=== PATIENT | female | born 1995 | race Caucasian/White ===

== ENCOUNTER → 2017-07-30 | Outpatient (CLI) | payer BC, OTHER | LOC: FIMAGING 15:14 | PROVIDERS: ATTEND Orthopaedic Surgery | DX: S73.191A Other sprain of right hip, initial encounter (principal); M21.861 Other specified acquired deformities of right lower leg ==

== ENCOUNTER 2017-12-27 05:45 | Day surgery (SDC) | payer OTHER ==
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
[2017-12-27] MEDS ORDERED: ceFAZolin 2 GM/SWFI 2 GM/20 ML SYR IVP ONE (06:13)
[2017-12-27] MEDS ORDERED: ACETAMINOPHEN 500 MG TAB PO ONE (06:13)
[2017-12-27] MEDS ORDERED: LR 1,000 ML IV ONE (06:13)
[2017-12-27] MEDS ORDERED: PREGABALIN 150 MG CAP PO ONE (06:13)
[2017-12-27] MEDS ORDERED: LIDOCAINE 1% 2 ML INJ ID PRN (06:13)
[2017-12-27 06:41] VITALS: PULSE 91
--- NOTE | 2017-12-27 06:47 | PDANEPAE ---
ANE History of Present Illness 22 year old female presents for right hip arthroscopy. ANE Past Medical History - Cardiovascular History Hx Hypertension: No Hx Arrhythmias: No Hx Chest Pain: No Hx Coronary Artery / Peripheral Vascular Disease: No Hx CHF / Valvular Disease: No Hx Palpitations: No - Pulmonary History Hx COPD: No Hx Asthma/Reactive Airway Disease: No Hx Recent Upper Respiratory Infection: No Hx Oxygen in Use at Home: No Hx Sleep Apnea: No Sleep Apnea Screening Result - Last Documented: Negative - Neurologic History Hx Cerebrovascular Accident: No Hx Seizures: No Hx Dementia: No - Endocrine History Hx Diabetes: No Hypothyroid: No Hyperthyroid: No Obesity: no - Renal History Hx Renal Disorders: No - Liver History Hx Hepatic Disorders: No - Neurological & Psychiatric Hx Hx Neurological and Psychiatric Disorders: No - Cancer History Hx Cancer: No - Congenital Disorder History Hx Congenital Disorders: No Congenital History Comment: FLORENTINO HIPS - GI History GERD: no Hx Gastrointestinal Disorders: No - Other Health History Other Health History: generalised acne. iron anemia - Chronic Pain History Chronic Pain: No - Surgical History Prior Surgeries: labrum repair 2016. tonsilectomy 2014 ANE Review of Systems Review of systems is: negative Review of Systems: - Exercise capacity Exercise capacity: >=4 METS METS (RN): 6 METS ANE Patient History - Allergies Allergies/Adverse Reactions: No Known Allergies Allergy (Verified 12/21/17 15:07) - Home Medications Home medications: home medication list seen and reviewed Home Medications: Ibuprofen 03/17/14 [Last Taken 12/20/17] IRON 11/23/17 [Last Taken 12/26/17] Spironolactone 11/23/17 [Last Taken 12/26/17] - NPO status NPO Status: no food or drink >8 hours NPO Since - Liquids (Date): 12/26/17 NPO Since - Liquids (Time): 23:55 NPO Since - Solids (Date): 12/26/17 NPO Since - Solids (Time): 22:30 - Anes Hx Anes Hx: no prior problems - Smoking Hx Smoking Status: Never smoked Marijuana use: No - Alcohol Use Alcohol Use: Rarely - Family Anes Hx Family Anes Hx: neg - N/A Family Hx Anesthesia Complications: none ANE Labs/Vital Signs - Vital Signs Vital Signs: reviewed preoperatively; see RN documention for details Blood Pressure: 122/70 Heart Rate: 91 Respiratory Rate: 18 O2 Sat (%): 96 Height: 160.02 cm Weight: 61.235 kg ANE Physical Exam - Airway Neck exam: FROM Mallampati Score: Class 2 Mouth exam: normal dental/mouth exam - Pulmonary Pulmonary: no respiratory distress - Cardiovascular Cardiovascular: regular rate and rhythym - ASA Status ASA Status: I ANE Anesthesia Plan Anesthesia Plan: general endotracheal anesthesia Total IV Anesthesia: No
[2017-12-27] MEDS ORDERED: MIDAZOLAM 2 MG/2 ML VIAL IVP ONE (06:48)
[2017-12-27] MEDS ORDERED: PROPOFOL 200 MG/20 ML VIAL ONE (07:09)
[2017-12-27] MEDS ORDERED: fentaNYL 100 MCG/2 ML INJ ONE ×4 (07:09→11:18)
[2017-12-27] MEDS ORDERED: EPINEPHrine 30 MG/30 ML MDV (0.1 MG/0.1 ML) ONE (07:15)
[2017-12-27] MEDS ORDERED: SCOPOLAMINE HYDROBROMIDE 1 MG/3 DAYS PATCH TD SCH (07:15)
[2017-12-27] MEDS ORDERED: BUPIVACAINE 0.25% 30 ML SDV ONE (07:15)
[2017-12-27] MEDS ORDERED: PHENYLEPHRINE HCL 100 MCG/ML SYR ONE (07:35)
[2017-12-27] MEDS ORDERED: ROCURONIUM 50 MG/5 ML VIAL ONE (07:48)
[2017-12-27] MEDS ORDERED: LIDOCAINE 2% 5 ML SDV ONE (07:48)
[2017-12-27] MEDS ORDERED: ONDANSETRON 4 MG/2 ML VIAL ONE (07:48)
[2017-12-27] MEDS ORDERED: DEXAMETHASONE 4 MG/ML VIAL ONE (07:48)
[2017-12-27] MEDS ORDERED: PROPOFOL/EMULSION 500 MG/50 ML BOTTLE IV ONE (08:05)
[2017-12-27] MEDS ORDERED: PHENYLEPHRINE HCL 100 MCG/ML SYR IVP PRN (09:21)
[2017-12-27] MEDS ORDERED: DIAZEPAM 5 MG/ML 1 ML SYR IVP PRN (09:21)
[2017-12-27] MEDS ORDERED: PROMETHAZINE HCL 25 MG/ML INJ IVP PRN (09:21)
[2017-12-27] MEDS ORDERED: OXYCODONE/APAP 5/325 TAB PO PRN (09:21)
[2017-12-27] MEDS ORDERED: LR 500 ML IV PRN (09:21)
[2017-12-27] MEDS ORDERED: NALOXONE HCL 0.4 MG/ML INJ IVP PRN (09:21)
[2017-12-27] MEDS ORDERED: HYDROmorphONE/DILAUDID 1 MG/ML INJ IVP PRN (09:21)
[2017-12-27] MEDS ORDERED: ONDANSETRON 4 MG/2 ML VIAL IVP PRN (09:21)
[2017-12-27] MEDS ORDERED: SUGAMMADEX SODIUM 200 MG/2 ML VIAL IVP ONE (09:23)
[2017-12-27] MEDS ORDERED: HYDROmorphONE/DILAUDID 2 MG/ML INJ IVP PRN (10:00)
[2017-12-27] MEDS: fentaNYL 100 MCG/2 ML INJ IVP PRN ×2 (11:22→11:33)
[2017-12-27 11:44] VITALS: TEMP 97.9
[2017-12-27] MEDS ORDERED: OXYCODONE/APAP 5/325 TAB ONE ×2 (11:48→12:47)
[2017-12-27] MEDS ORDERED: HYDROmorphONE/DILAUDID 2 MG/ML INJ ONE (11:48)
[2017-12-27 12:07] VITALS: RESP 16
[2017-12-27] MEDS ORDERED: DIAZEPAM 5 MG TAB ONE (13:00)
[2017-12-27] MEDS ORDERED: DIAZEPAM 5 MG TAB PO ONE (13:02)
[2017-12-27] MEDS ORDERED: DIAZEPAM 2 MG TAB PO ONE (13:08)
[2017-12-27 14:42] VITALS: BP 105/63; O2SAT 94
--- NOTE | 2017-12-27 20:36 | POSTANESTH ---
Post Anesthetic Evaluation Cardiovascular Status: Normal, Stable, Similar to Pre-Op Cond Respiratory Status: Normal, Stable, Similar to Pre-op Cond. Level of Consciousness/Mental Status: Can Participate in Eval, Alert and Oriented Pain Control: Adequate, Prn Tx Ordered Nausea/Vomiting Control: Adequate, Prn Tx Ordered Complications Possibly Related to Anesthesia: None Noted
[2017-12-30] MEDS ORDERED: PATCH REMOVAL 1 EA PATCH TD SCH (07:04)
== END 2017-12-27 14:20 | disposition home or self-care (01) ==
LOC: FSGY 05:45
PROVIDERS: ATTEND Orthopaedic Surgery Sports Medicine
PROC: 0SQ94ZZ Repair Right Hip Joint, Percutaneous Endoscopic Approach (ICD-10-PCS; principal; 2017-12-27 07:15)
DX: Q65.89 Other specified congenital deformities of hip (principal); M25.851 Other specified joint disorders, right hip; M25.852 Other specified joint disorders, left hip
CPT/HCPCS: C1713; J0171; J0690; J1100; J1170; J2250; J2370; J2405; J2704; J3010

== ENCOUNTER 2018-01-03 05:54 | Inpatient (IN) | payer OTHER ==
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
[2018-01-03] MEDS ORDERED: TRANEXAMIC ACID 1,000 MG in NS (SYRINGE) 50 ML IV ONE (06:00)
[2018-01-03] MEDS ORDERED: ACETAMINOPHEN 500 MG TAB PO ONE (06:13)
[2018-01-03] MEDS ORDERED: PREGABALIN 150 MG CAP PO ONE (06:13)
[2018-01-03] MEDS ORDERED: LR 1,000 ML IV ONE (06:13)
[2018-01-03] MEDS ORDERED: LIDOCAINE 1% 2 ML INJ ID PRN (06:13)
[2018-01-03] MEDS ORDERED: ceFAZolin 2 GM/SWFI 2 GM/20 ML SYR IVP ONE ×2 (06:13→06:30)
[2018-01-03] MEDS ORDERED: SCOPOLAMINE HYDROBROMIDE 1 MG/3 DAYS PATCH TD ONE (06:13)
[2018-01-03] MEDS ORDERED: CITRATE DEXTROSE SOLN 500 ML BAG ONE ×2 (07:06→10:35)
[2018-01-03] MEDS ORDERED: MIDAZOLAM 2 MG/2 ML VIAL IVP ONE (07:11)
--- NOTE | 2018-01-03 07:11 | PDANEPAE ---
ANE History of Present Illness 22 yo female with R hip dysplasia. ANE Past Medical History - Cardiovascular History Hx Hypertension: No Hx Arrhythmias: No Hx Chest Pain: No Hx Coronary Artery / Peripheral Vascular Disease: No Hx CHF / Valvular Disease: No Hx Palpitations: No Cardiovascular History Comment: spironolactone used for acne treatment - Pulmonary History Hx COPD: No Hx Asthma/Reactive Airway Disease: No Hx Recent Upper Respiratory Infection: No Hx Oxygen in Use at Home: No Hx Sleep Apnea: No Sleep Apnea Screening Result - Last Documented: Negative - Neurologic History Hx Cerebrovascular Accident: No Hx Seizures: No Hx Dementia: No - Endocrine History Hx Diabetes: No Hypothyroid: No Obesity: no - Renal History Hx Renal Disorders: No - Liver History Hx Hepatic Disorders: No - Neurological & Psychiatric Hx Hx Neurological and Psychiatric Disorders: No - Cancer History Hx Cancer: No - Congenital Disorder History Hx Congenital Disorders: No Congenital History Comment: FLORENTINO HIPS - GI History Hx Gastrointestinal Disorders: No - Other Health History Other Health History: generalised acne. iron anemia - Chronic Pain History Chronic Pain: No - Surgical History Prior Surgeries: labrum repair 2016. tonsilectomy 2014 ANE Review of Systems Review of Systems: - Exercise capacity METS (RN): 4 METS - Systems Constitutional: Reports: no symptoms Cardiac: Reports: no symptoms Respiratory: Reports: no symptoms Muscolosketal: Reports: other (recovering from R hip surgery last week) ANE Patient History - Allergies Allergies/Adverse Reactions: No Known Allergies Allergy (Verified 12/21/17 15:07) - Home Medications Home Medications: Ibuprofen 03/17/14 [Last Taken 12/20/17] IRON 11/23/17 [Last Taken 1 Week Ago ~12/27/17] Spironolactone 11/23/17 [Last Taken 12/31/17] Naproxen 01/03/18 [Last Taken 12/31/17] Percocet 7.5-325 mg Tablet 01/03/18 [Last Taken 01/03/18 00:00] Valium 10 MG (*) 01/03/18 [Last Taken 01/03/18 00:00] Zofran 01/03/18 [Last Taken 01/03/18 00:00] - NPO status NPO Since - Liquids (Date): 01/03/18 NPO Since - Liquids (Time): 01:00 NPO Since - Solids (Date): 01/02/18 NPO Since - Solids (Time): 23:50 - Anes Hx Anes Hx: post operative nausea and vomiting - Smoking Hx Smoking Status: Never smoked - Family Anes Hx Family Anes Hx: neg - N/A Family Hx Anesthesia Complications: none ANE Labs/Vital Signs - Labs Result Diagrams: 01/03/18 06:44 - Vital Signs Vital Signs: reviewed preoperatively; see RN documention for details Blood Pressure: 116/76 Heart Rate: 94 O2 Sat (%): 95 Height: 160.02 cm Weight: 63.503 kg ANE Physical Exam - Airway Neck exam: FROM Mallampati Score: Class 1 Mouth exam: normal dental/mouth exam - Pulmonary Pulmonary: clear to auscultation - Cardiovascular Cardiovascular: regular rate and rhythym - ASA Status ASA Status: II ANE Anesthesia Plan Anesthesia Plan: general endotracheal anesthesia, spinal Lines/Monitors: additional IV
[2018-01-03] MEDS ORDERED: PROPOFOL/EMULSION 500 MG/50 ML BOTTLE IV ONE ×2 (07:20→09:56)
[2018-01-03] MEDS ORDERED: ROCURONIUM 100 MG/10 ML VIAL ONE (07:20)
[2018-01-03] MEDS ORDERED: morphINE PF 5 MG/10 ML INJ ONE (07:20)
[2018-01-03] MEDS ORDERED: LIDOCAINE 2% 5 ML SDV ONE (07:20)
[2018-01-03] MEDS ORDERED: KETAMINE 200 MG/20 ML VIAL ONE (07:20)
[2018-01-03] MEDS ORDERED: PHENYLEPHRINE 10 MG/ML SDV ONE (09:21)
[2018-01-03] MEDS ORDERED: DIAZEPAM 5 MG/ML 1 ML SYR IVP PRN (11:47)
[2018-01-03] MEDS ORDERED: PROMETHAZINE HCL 25 MG/ML INJ IVP PRN (11:47)
[2018-01-03] MEDS ORDERED: ALBUTEROL 3 ML DEYVIAL IH PRN (11:47)
[2018-01-03] MEDS ORDERED: LR 500 ML IV PRN (11:47)
[2018-01-03] MEDS ORDERED: NALOXONE HCL 0.4 MG/ML INJ IVP PRN ×2 (11:47→12:27)
[2018-01-03] MEDS ORDERED: OXYCODONE/APAP 5/325 TAB PO PRN (11:47)
[2018-01-03] MEDS ORDERED: ONDANSETRON 4 MG/2 ML VIAL ONE (11:51)
[2018-01-03] MEDS ORDERED: BISACODYL 10 MG SUPP PR PRN (12:26)
[2018-01-03] MEDS ORDERED: ACETAMINOPHEN 325 MG TAB PO PRN (12:26)
[2018-01-03] MEDS ORDERED: POLYETHYLENE GLYCOL 3350 17 GM PKT PO PRN (12:26)
[2018-01-03] MEDS ORDERED: LACTULOSE 20 GM/30 ML UDCUP PO PRN (12:26)
[2018-01-03] MEDS ORDERED: diphenhydrAMINE 25 MG CAP PO PRN (12:27)
--- NOTE | 2018-01-03 12:29 | POSTANESTH ---
Post Anesthetic Evaluation Cardiovascular Status: Normal, Stable Respiratory Status: Normal, Stable Level of Consciousness/Mental Status: Can Participate in Eval, Mildly Sleepy, Arousable Pain Control: Inadeq, Add Tx Required (Pain 5/10 in R hip) Nausea/Vomiting Control: Adequate, Prn Tx Ordered Complications Possibly Related to Anesthesia: None Noted
[2018-01-03] MEDS ORDERED: fentaNYL 100 MCG/2 ML INJ ONE (12:30)
[2018-01-03] MEDS: fentaNYL 100 MCG/2 ML INJ IVP PRN ×2 (12:32→12:57)
[2018-01-03] MEDS: ONDANSETRON 4 MG/2 ML VIAL IVP PRN ×2 (13:50→23:03)
[2018-01-03] MEDS: NS 1,000 ML IV SCH (14:06)
[2018-01-03] MEDS: HYDROmorphONE/DILAUDID 6 MG/30 ML PCA IV PRN (14:28)
[2018-01-03] MEDS: DIAZEPAM 2 MG TAB PO PRN (15:11)
[2018-01-03] MEDS: SENNOSIDES/DOCUSATE SODIUM TAB PO SCH (22:03)
--- NOTE | 2018-01-03 23:38 | SUROPNOTE ---
[facility] Operative Report - Surgery Surgery was performed at [facility] on 01/03/18~ Diagnosis: Right 1. Hip Acetabular Dysplasia ~ Operation: Right~Pili Acetabular Osteotomy (JENNY) Surgeon: Vivek Acosta MD Smt Operator:~~Shreya Price MD Anesthetic: General + spinal Procedure: General anesthetic. Antibiotics given. Cell saver in use. Fluoroscopy. Phase 1: Position lateral, diagonal skin incision between ischial tuberosity and greater trochanter as for posterior hip approach. Blunt split of glut max fibers. Identification of fat pad overlying sciatic nerve. Exposure of sciatic nerve under fat pad, gently retracting it away-medially to ischial tuberosity. Exposure of subcotoloid fossa proximal to short rotators. Using osteotomes and under fluoroscopy, osteotomy of subcotoloid fossa to sciatic notch proximal to ischial spine. Closure of lateral cut. Patient is turned supine. Phase 2: Skin incision just distal to ASIS. Using diathermy the iliac spine was exposed and inguinal ligament + Sartorious were retracted medially, taking the LFCN with them, protecting it. Inner ilium was dissected from iliacus muscle bluntly , with a cob and swab. Dissection continued towards lateral superior ramus pubis. Using fluoroscopy an osteotomy of lateral superior ramus, just medial to tear drop, was performed with curved fish mouth osteotome. Phase 3: Osteotomy lines of the ilium were marked with diathermy as pre planned according to XR/CT and expected correction of acatabulum. 2 Shanz screws were drilled into central acetabular fragment, corresponding with planned correction angles, in order to mobilize central acetabular fragment after osteotomy is complete. ~Iliac osteotomy was performed with reciprocating saw and the main acetabular fragment was moved to realign weight bearing position. After confirmation of correction using fluoroscopy in AP and false profile planes, the fragment was fixed with 3 - 5.5mm ~full threaded~screws~Inguinal ligament and Sartorious were attached back to ASIS through drill holes. Incision was closed according to soft tissue layers. Skin was closed with subdermal Monocryl. Final fluoro shots were obtained to confirm position/correction. After surgery [place]~moved both lower limbs and had no NV motor compromise. Specimen - none Bleeding - 300ml Complication - none Evaluation under anesthesia: IR at 90 degrees hip flexion prior to JENNY was 40~degrees and after JENNY was 20~ degrees. Bleedin~cc into cell-saver, 135~of blood products were returned to patient. Post op instructions: 1. Non~weight bearing crutches for 2~weeks 2. Epidural analgesia for 24-48 hours 3. Continuous SCD 4. Aspirin 81 mg X1 day once Epidural is discontinued 5. Avoid hip flexion past 90 and hip External rotation. 6. PT according to my recommendations at follow up visit Kind regards, Dr. Vivek Acosta .
[2018-01-04] MEDS: ONDANSETRON DISINTEGRATING 4 MG TAB PO PRN ×2 (02:50→10:09)
[2018-01-04] MEDS: DIAZEPAM 2 MG TAB PO PRN ×2 (02:50→10:09)
[2018-01-04] MEDS: oxyCODONE IR 5 MG TAB PO PRN ×2 (04:11→11:43)
[2018-01-04] MEDS: oxyCODONE IR 5 MG TAB PO SCH ×5 (05:59→21:27)
[2018-01-04] MEDS ORDERED: PROMETHAZINE HCL 25 MG/ML INJ IVP PRN (07:28)
[2018-01-04] MEDS ORDERED: NAPROXEN SODIUM 220 MG TAB PO PRN (07:45)
[2018-01-04] MEDS: SPIRONOLACTONE 50 MG TAB PO SCH (07:52)
[2018-01-04] MEDS: SENNOSIDES/DOCUSATE SODIUM TAB PO SCH ×2 (08:28→19:59)
[2018-01-04] MEDS: NS 1,000 ML IV SCH ×2 (08:28→09:57)
--- NOTE | 2018-01-04 13:32 | SOAPPROG ---
SOAP Progress Note Assessment/Plan: Assessment: 22 yo female s/p R hip JENNY on POD #1. Pt received IT narcotics on DOS for POPC. Pt reporting poorly controlled pain yesterday and today. Has noticed an increase in pain today as spinal narcotics wore off. Pt had pruritus and nausea yesterday. Better today. Pt denies back pain/HARMON/leg weakness. Plan: 01/04/18 13:29 1. Add scheduled Lyrica and Celebrex for multimodal analgesia. 2. Reviewed s/s of PDPH and neurologic injury after SAB. Pt understands what to do in the event either problems arise. Objective: Vital Signs Temp Pulse Resp BP Pulse Ox 36.9 C 113 H 16 106/57 L 98 01/04/18 08:07 01/04/18 11:22 01/04/18 08:07 01/04/18 11:22 01/04/18 11:22 Laboratory Results 01/04/18 04:55 01/04/18 04:55 01/03/18 01/04/18 01/05/18 05:59 05:59 05:59 Intake Total 3610 500 Output Total 3050 Balance 560 500 Physical Exam - Physical Exam General Appearance: moderate distress Back: Other (SAB puncture site: no point tenderness, no erythema/edema/exudate.) ICD10 Worksheet Patient Problems: Problems Problem Status Onset Hip dysplasia Acute - ICD10 Problem Qualifiers (1) Hip dysplasia
[2018-01-04] MEDS: PREGABALIN 150 MG CAP PO SCH ×2 (14:15→19:59)
--- NOTE | 2018-01-04 15:51 | ASMTCMCOM ---
CM Note CM Note Notes: Pt s/p R hip JENNY, lives in [place]. OT/PT recs pending. CM to follow. Date Signed: 01/04/2018 03:51 PM Electronically Signed By:NORA Leung
[2018-01-04] MEDS: HYDROmorphONE/DILAUDID 6 MG/30 ML PCA IV PRN (18:27)
--- NOTE | 2018-01-04 21:50 | SOAPPROG ---
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 She was given Oxycodone which also was not adequate enough until she was given Lyrica and Celebrex by Dr. Dunne this afternoon. She is now well pain managed. She has not had much of an appetite but denies any current nausea , no cp or sob. Objective: Vital Signs Temp Pulse Resp BP Pulse Ox 36.3 C 111 H 16 103/65 97 01/04/18 20:00 01/04/18 20:00 01/04/18 20:00 01/04/18 20:00 01/04/18 20:00 Laboratory Results 01/04/18 04:55 01/04/18 04:55 01/03/18 01/04/18 01/05/18 05:59 05:59 05:59 Intake Total 3610 1994 Output Total 3050 2400 Balance 560 -405 Well appearing in NAD Right Hip: dressings clean dry intact scattered ecchymosis and edema no thigh numbness NVI distally Full ROM of foot and ankle ICD10 Worksheet Patient Problems: Problems Problem Status Onset Hip dysplasia Acute
[2018-01-05] MEDS: oxyCODONE IR 5 MG TAB PO SCH ×6 (04:19→22:06)
[2018-01-05] MEDS: SENNOSIDES/DOCUSATE SODIUM TAB PO SCH ×2 (09:16→20:41)
[2018-01-05] MEDS: SPIRONOLACTONE 50 MG TAB PO SCH (09:16)
[2018-01-05] MEDS: PREGABALIN 150 MG CAP PO SCH ×2 (09:17→20:41)
--- NOTE | 2018-01-05 09:39 | SOAPPROG ---
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 Tolerating regular diet, no n/v. passing flatus. no cp or sob. no n/t in ble. Objective: Vital Signs Temp Pulse Resp BP Pulse Ox 36.7 C 107 H 16 106/61 94 01/05/18 07:38 01/05/18 07:38 01/05/18 07:38 01/05/18 07:38 01/05/18 07:38 Laboratory Results 01/04/18 04:55 01/04/18 04:55 01/04/18 01/05/18 01/06/18 05:59 05:59 05:59 Intake Total 3610 1994 Output Total 3050 4150 Balance 560 -2155 GEN - NAD, AO ABD - soft nt, nd BLE - dressing c/d/i, mild surrounding ecchymosis and swelling - 5/5 dorsi and plantar ankle flexion, thigh adduction - SILT L2-S1 , some diminishment in R LFCN - BCR, WWP ICD10 Worksheet Patient Problems: Problems Problem Status Onset Hip dysplasia Acute
[2018-01-05] MEDS: DIAZEPAM 2 MG TAB PO PRN ×2 (11:40→18:18)
[2018-01-05] MEDS: oxyCODONE IR 5 MG TAB PO PRN ×2 (11:40→20:41)
[2018-01-05] MEDS: ASPIRIN EC 81 MG TAB PO SCH (14:19)
[2018-01-05] MEDS: MAGNESIUM HYDROXIDE 30 ML UDCUP PO PRN (17:44)
[2018-01-05] MEDS: ONDANSETRON 4 MG/2 ML VIAL IVP PRN (20:02)
[2018-01-06] MEDS: DIAZEPAM 2 MG TAB PO PRN ×4 (00:11→22:58)
[2018-01-06] MEDS: oxyCODONE IR 5 MG TAB PO SCH ×6 (03:47→22:58)
[2018-01-06] MEDS: ASPIRIN EC 81 MG TAB PO SCH (08:52)
[2018-01-06] MEDS: SPIRONOLACTONE 50 MG TAB PO SCH (08:52)
[2018-01-06] MEDS: SENNOSIDES/DOCUSATE SODIUM TAB PO SCH ×2 (08:53→20:41)
[2018-01-06] MEDS: PREGABALIN 150 MG CAP PO SCH ×2 (08:53→20:41)
[2018-01-06] MEDS: ONDANSETRON DISINTEGRATING 4 MG TAB PO PRN ×3 (10:07→22:58)
[2018-01-06] MEDS: oxyCODONE IR 5 MG TAB PO PRN (20:42)
[2018-01-06] MEDS ORDERED: SPIRONOLACTONE 100 MG TAB PO SCH (21:00)
[2018-01-06] MEDS ORDERED: SPIRONOLACTONE 50 MG TAB PO SCH (21:00)
--- NOTE | 2018-01-06 23:38 | SOAPPROG ---
SOAP Progress Note Assessment/Plan: Assessment: Plan: 01/06/18 23:37 Saw patient, POD 3, doing well, pain is managed PO. NV intact, LFCN reduced. good with OT/PT, need to clear stairs. XR shows good unchanged alignment. Good for discharge when feel ready Dr Acosta Objective: Vital Signs Temp Pulse Resp BP Pulse Ox 36.8 C 97 18 114/65 93 01/06/18 22:57 01/06/18 22:57 01/06/18 22:57 01/06/18 22:57 01/06/18 22:57 Laboratory Results 01/04/18 04:55 01/04/18 04:55 01/05/18 01/06/18 01/07/18 05:59 05:59 05:59 Intake Total 1994 1650 1500 Output Total 4150 1950 1000 Balance -2155 -300 500 ICD10 Worksheet Patient Problems: Problems Problem Status Onset Hip dysplasia Acute
[2018-01-07] MEDS: oxyCODONE IR 5 MG TAB PO SCH ×4 (02:53→14:31)
[2018-01-07] MEDS: DIAZEPAM 2 MG TAB PO PRN ×2 (06:13→14:31)
[2018-01-07 08:13] VITALS: BP 114/74; PULSE 94; RESP 16; TEMP 98.3; O2SAT 98
[2018-01-07] MEDS: PREGABALIN 150 MG CAP PO SCH (08:52)
[2018-01-07] MEDS: ASPIRIN EC 81 MG TAB PO SCH (08:53)
[2018-01-07] MEDS: SENNOSIDES/DOCUSATE SODIUM TAB PO SCH (08:53)
[2018-01-07] MEDS: SPIRONOLACTONE 50 MG TAB PO SCH (08:54)
[2018-01-07] MEDS: MAGNESIUM HYDROXIDE 30 ML UDCUP PO PRN (08:54)
[2018-01-07] MEDS: oxyCODONE IR 5 MG TAB PO PRN (10:54)
== END 2018-01-07 15:29 | disposition home or self-care (01) | DRG 482 ==
LOC: F3N 05:54
PROVIDERS: ADMIT Orthopaedic Surgery Sports Medicine; ATTEND Orthopaedic Surgery Sports Medicine
PROC: 0Q840ZZ Division of Right Acetabulum, Open Approach (ICD-10-PCS; principal; 2018-01-03 07:15)
PROC: 0SS904Z Reposition Right Hip Joint with Internal Fixation Device, Open Approach (ICD-10-PCS; principal; 2018-01-03 07:15)
DX: M25.851 Other specified joint disorders, right hip (principal); Q65.89 Other specified congenital deformities of hip
CPT/HCPCS: 97116-GP; 97162-GP; 97165-GO; 97530-GP; 97535-GO; C1713; J0690; J1170; J2250; J2270; J2274; J2370; J2405; J2704; J3010; J7060

== ENCOUNTER 2018-07-04 05:31 | Day surgery (SDC) | payer OTHER ==
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
[2018-07-04] MEDS ORDERED: ACETAMINOPHEN 500 MG TAB PO ONE (05:44)
[2018-07-04] MEDS ORDERED: ceFAZolin 2 GM/DEXTROSE 100 ML IV ONE (05:44)
[2018-07-04] MEDS ORDERED: PREGABALIN 150 MG CAP PO ONE (05:44)
[2018-07-04] MEDS ORDERED: LR 1,000 ML IV ONE (05:45)
[2018-07-04] MEDS ORDERED: LIDOCAINE 1% 300 MG/30 ML SDV ONE (06:19)
[2018-07-04] MEDS ORDERED: PROPOFOL 200 MG/20 ML VIAL ONE ×2 (07:18→07:43)
[2018-07-04] MEDS ORDERED: fentaNYL 100 MCG/2 ML INJ ONE ×3 (07:19→08:58)
[2018-07-04] MEDS ORDERED: MIDAZOLAM 2 MG/2 ML VIAL ONE (07:19)
[2018-07-04] MEDS ORDERED: LR 500 ML IV PRN (08:43)
[2018-07-04] MEDS ORDERED: ONDANSETRON 4 MG/2 ML VIAL IVP PRN (08:43)
[2018-07-04] MEDS ORDERED: NALOXONE HCL 0.4 MG/ML INJ IVP PRN (08:43)
[2018-07-04] MEDS ORDERED: PROMETHAZINE HCL 25 MG/ML INJ IVP PRN (08:43)
[2018-07-04] MEDS ORDERED: HYDROCODONE/APAP 5/325 TAB PO PRN (08:43)
--- NOTE | 2018-07-04 08:43 | PDANEPAE ---
ANE Past Medical History - Cardiovascular History Hx Hypertension: No Hx Arrhythmias: No Hx Chest Pain: No Hx Coronary Artery / Peripheral Vascular Disease: No Hx CHF / Valvular Disease: No Hx Palpitations: No Cardiovascular History Comment: spironolactone used for acne treatment - Pulmonary History Hx COPD: No Hx Asthma/Reactive Airway Disease: No Hx Recent Upper Respiratory Infection: No Hx Oxygen in Use at Home: No Hx Sleep Apnea: No Sleep Apnea Screening Result - Last Documented: Negative - Neurologic History Hx Cerebrovascular Accident: No Hx Seizures: No Hx Dementia: No - Endocrine History Hx Diabetes: No - Renal History Hx Renal Disorders: No - Liver History Hx Hepatic Disorders: No - Neurological & Psychiatric Hx Hx Neurological and Psychiatric Disorders: No - Cancer History Hx Cancer: No - Congenital Disorder History Hx Congenital Disorders: Yes Congenital History Comment: FLORENTINO HIPS - GI History Hx Gastrointestinal Disorders: No - Other Health History Other Health History: generalised acne. iron anemia - Chronic Pain History Chronic Pain: Yes (LT HIP) - Surgical History Prior Surgeries: RT PERIACETABULAR OSTEOTOMY 12/2017. labrum repair 2015. tonsilectomy 2014 ANE Review of Systems Review of Systems: - Exercise capacity METS (RN): 6 METS ANE Patient History - Allergies Allergies/Adverse Reactions: No Known Allergies Allergy (Verified 12/21/17 15:07) - Home Medications Home Medications: Ibuprofen [Motrin (*)] 600 mg PO DAILY PRN 03/17/14 [Last Taken 06/27/18] Spironolactone [Aldactone 50 MG (RX)] 50 mg PO DAILY 11/23/17 [Last Taken ] Diazepam [Valium 2 MG (*)] 2 mg PO Q6HRS PRN 01/03/18 [Last Taken 01/03/18 00:00 ] Naproxen [Naprosyn] 500 mg PO DAILY PRN 01/03/18 [Last Taken 12/31/17] Spironolactone [Aldactone 50 MG (RX)] 100 mg PO HS 01/05/18 [Last Taken 07/03/18 ] Birthcontrol HS 06/24/18 [Last Taken 07/03/18] - NPO status NPO Since - Liquids (Date): 07/04/18 NPO Since - Liquids (Time): 00:01 NPO Since - Solids (Date): 07/03/18 NPO Since - Solids (Time): 23:55 - Smoking Hx Smoking Status: Never smoked - Family Anes Hx Family Hx Anesthesia Complications: none ANE Labs/Vital Signs - Vital Signs Blood Pressure: 104/70 Heart Rate: 61 Respiratory Rate: 10 O2 Sat (%): 98 Height: 160.02 cm Weight: 61.235 kg ANE Physical Exam - Airway Neck exam: FROM Mallampati Score: Class 1 Mouth exam: normal dental/mouth exam - Pulmonary Pulmonary: no respiratory distress - Cardiovascular Cardiovascular: regular rate and rhythym - ASA Status ASA Status: I ANE Anesthesia Plan Anesthesia Plan: GA w LMA Urgent/Emergent Case: Bryson wilder completed preop but documented later for safe timely pt care
--- NOTE | 2018-07-04 08:43 | POSTANESTH ---
Post Anesthetic Evaluation Cardiovascular Status: Normal, Stable Respiratory Status: Normal, Stable Level of Consciousness/Mental Status: Can Participate in Eval Pain Control: Adequate, Prn Tx Ordered Nausea/Vomiting Control: Adequate, Prn Tx Ordered Complications Possibly Related to Anesthesia: None Noted
[2018-07-04] MEDS ORDERED: HYDROCODONE/APAP 5/325 TAB ONE (08:58)
[2018-07-04] MEDS: fentaNYL 100 MCG/2 ML INJ IVP PRN ×2 (08:59→09:14)
[2018-07-04 09:33] VITALS: BP 99/66
== END 2018-07-04 09:33 | disposition home or self-care (01) ==
LOC: FSGY 05:31
PROVIDERS: ATTEND Orthopaedic Surgery Sports Medicine
PROC: 0QP Lower Bones, Removal (ICD-10-PCS; principal; 2018-07-04 07:15)
DX: T84.84XA Pain due to internal orthopedic prosthetic devices, implants and grafts, initial encounter (principal); Y79.2 Prosthetic and other implants, materials and accessory orthopedic devices associated with adverse incidents; D50.9 Iron deficiency anemia, unspecified
CPT/HCPCS: C1713; J0690; J2250; J2704; J3010

== ENCOUNTER → 2018-12-05 | Outpatient (CLI) | payer OTHER | LOC: FIMAGING 16:37 | PROVIDERS: ATTEND Midwife | DX: N92.1 Excessive and frequent menstruation with irregular cycle (principal) ==